=== PATIENT | male | born 1965 | race Caucasian/White ===

== ENCOUNTER 2017-12-04 06:22 | Day surgery (SDC) | payer BC ==
[~2017-12-04 06:22] MED LIST: Lactated Ringers 1,000 ML IV SCH
[2017-12-04] MEDS ORDERED: Propofol 200 MG/20 ML SDV ONE ×2 (07:31→08:11)
[2017-12-04] MEDS ORDERED: fentaNYL 100 MCG/2 ML SDV ONE (07:31)
--- NOTE | 2017-12-04 09:38 | OR ---
PREOPERATIVE DIAGNOSIS: Intermittent bleeding, internal hemorrhoids. POSTOPERATIVE DIAGNOSIS: Intermittent bleeding, internal hemorrhoids. PROCEDURE PROPOSED: Anoscopy with hemorrhoid banding. PROCEDURE DONE: Anoscopy with hemorrhoid banding. INDICATION: A 52-year-old gentleman with intermittently bleeding internal hemorrhoids with some protrusion of the hemorrhoids with defecation. He had a recent colonoscopy this morning and it was felt that he may be a candidate for banding. TECHNIQUE: The patient was already sedated from his colonoscopy. The lighted anoscope was then inserted and all 3 quadrants were inspected. He did have significant internal hemorrhoids in both the right anterior and right posterior quadrant and less so in the left lateral quadrant. I felt that we should proceed with banding. I did a banding of the right posterior quadrant, and I placed 2 bands in the right anterior quadrant to hopefully get rid of these hemorrhoids in those quadrants. He tolerated this procedure well, and I will do a 1 month followup to see if there is any further banding needed in the clinic. FINAL IMPRESSION: Three-quadrant hemorrhoids with bleeding, hemorrhoid banding x3 done. PLAN: He was given appropriate instructions. He was told that the bands will fall off in about 10 days or maybe some bleeding at that point. I would like to see him in the clinic in 1 month for a followup inspection and see if there is any further banding that is needed and to see how much it has helped him. SCM: 12/04/2017 08:32:15 MODL: 12/04/2017 09:17:24 /[id number]
== END 2017-12-04 09:30 | disposition home or self-care (01) ==
LOC: VM.SDS 06:22
PROVIDERS: ATTEND Surgery
DX: K64.8 Other hemorrhoids (principal); E78.5 Hyperlipidemia, unspecified; N18.3 Chronic kidney disease, stage 3 (moderate); Z79.899 Other long term (current) drug therapy
CPT/HCPCS: 46221; J2704; J3010; J7120